=== PATIENT | female | born 1950 | race Caucasian/White ===

== ENCOUNTER 2020-05-26 14:32 | Emergency (ER) | payer MEDICARE, SELFPAY ==
[2020-05-26] VITALS (10 sets, daily range): BP systolic 132–199; BP diastolic 63–102; PULSE 66–107; RESP 12–28; TEMP 36.1–36.6; O2SAT 91–100
--- NOTE | ~2020-05-26 | XR_ITS ---
EXAMINATION: XR ankle RT 2V DATE: 05/26/2020 15:04 INDICATION: Right ankle dislocation post fall TECHNIQUE: Anteroposterior and lateral views of the right ankle were obtained. COMPARISON: None. FINDINGS: Oblique fracture of the distal fibula which exits the medial cortex approximately 12 mm above level o f the tibiotalar joint line. Transverse fracture across the base of the medial malleolus. There is al so a fracture involving a portion of the posterior malleolus. There is dislocation of the talar dome relative to the tibial plafond and. The talar dome along the medial, lateral and posterior malleolar fragments are all laterally displaced and angulated is a relatively clearly see definite relative to the more proximal tibia and fibula. Normal alignment with no evident fracture within the visualized r ight forefoot. IMPRESSION: Lateral displacement and angulation of a right ankle Hyatt type C trimalleolar fracture dislocation. Reviewed, dictated and finalized at location A. ARCH TEST ENGINE OPERATOR
--- NOTE | ~2020-05-26 | XR_ITS ---
EXAMINATION: XR thoracic spine 2V DATE: 05/26/2020 17:16 INDICATION: Thoracic back pain after fall TECHNIQUE: AP, lateral and lateral swimmer's views of the thoracic spine were obtained. COMPARISON: 07/28/2017 FINDINGS: There is no fracture, dislocation, or subluxation. The thoracic vertebral body heights and alignment are maintained. There is chronic moderate loss of intervertebral disc space height in the m id and upper thoracic spine. Small degenerative osteophytes project from the anterior endplates of mu ltiple vertebral bodies. Moderate cervical spondylosis is also noted. IMPRESSION: 1. Moderate thoracic spondylosis without acute findings or significant interval change. Reviewed, dictated and finalized at location A. GATHERER
--- NOTE | ~2020-05-26 | XR_ITS ---
EXAMINATION: XR ankle RT 2V DATE: 05/26/2020 15:41 INDICATION: Right ankle fracture status post reduction. TECHNIQUE: 2 views of right ankle were obtained. COMPARISON: Right ankle radiographs at 3:05 PM FINDINGS: There is a comminuted fracture of medial malleolus. The main distal fracture fragment demon strates 5 mm lateral displacement. There is a coronal fracture of posterior malleolus. The posterior fracture fragment demonstrates 3 mm posterior displacement. There is an oblique fracture of distal fi bula with medial aspect of the fracture line 8 mm proximal to the level of the tibial plafond. The di stal fracture fragment demonstrates 6 mm posterior displacement and 2 mm lateral displacement. The ta lar dome is normal. There is an enthesophyte at posterior aspect of calcaneal tuberosity. Ankle soft tissue swelling is noted. IMPRESSION: 1. Trimalleolar ankle fracture with improvement in alignment. Reviewed, dictated and finalized at location B. NO CASHIER MANAGER
--- NOTE | ~2020-05-26 | XR_ITS ---
EXAMINATION: XR lumbar spine 2-3V DATE: 05/26/2020 17:16 INDICATION: Low back pain TECHNIQUE: Anteroposterior and lateral views of the lumbar spine, and cone-down lateral view of the l umbosacral junction were obtained. COMPARISON: 11/30/2018 FINDINGS: There are 4 mm of unchanged anterolisthesis of L4 on L5. Bone alignment is otherwise normal . The vertebral body heights are maintained. There is severe loss of intervertebral disc space height at L1-2 and L2-3 there is mild lumbar levocurvature. No fracture is identified. Small degenerative o steophytes project from the anterior endplates of multiple vertebral bodies. IMPRESSION: 1. Moderate lumbar spondylosis without acute findings or significant interval change. Reviewed, dictated and finalized at location A. DIP PLATER IMPRESSION: 1. Moderate lumbar spondylosis without acute findings or significant interval everette ceballos
--- NOTE | 2020-05-26 14:43 | ED.GENADULT ---
HPI - General Adult General Chief complaint: Extremity Injury, Lower Stated complaint: fall - ankle deformity Time Seen by Provider: 05/26/20 14:33 Source: patient and EMS History of Present Illness HPI narrative: Patient is a 70 y/o female complaining of right ankle pain after she missed a step and fell prior to arrival. She states that her pain is severe and movement worsens her pain. She denies hitting her head or losing consciousness. She has some chronic back pain which was present prior to her fall today. She has no other injury. Related Data Home Medications Medication Instructions Recorded Confirmed duloxetine mg PO 05/26/20 05/26/20 gabapentin 05/26/20 risedronate mg PO 05/26/20 rosuvastatin mg 05/26/20 Allergies Allergy/AdvReac Type Severity Reaction Status Date / Time No Known Allergies Allergy Verified 05/26/20 14:41 Review of Systems Constitutional: Constitutional: Denies chills, Denies fever(s), Denies headache(s) and Denies weakness Eyes: Eyes: Denies blurry vision ENT: Denies headache(s) and Denies neck pain Cardiovascular: Cardiovascular: Denies chest pain and Denies dyspnea Respiratory: Respiratory: Denies cough and Denies dyspnea Gastrointestinal: Gastrointestinal: Denies abdominal pain, Denies diarrhea, Denies nausea and Denies vomiting Genitourinary: Genitourinary: Denies hematuria and Denies dysuria Musculoskeletal: Musculoskeletal: Reports back pain, Reports arthralgias (right ankle pain) and Denies neck pain Neurologic: Denies headache(s) and Denies weakness Exam Const: General: no acute distress and well developed Orientation/consciousness: oriented to person, oriented to place, oriented to time and patient oriented x3 HENMT: Head: normocephalic Ears: external ears normal General nose exam: Normal external nose present Eyes: General: appearance normal, both eyes and all related structures Conjunctivae: conjunctivae normal Neck: Neck: normal visual inspection and full ROM Chest: Chest palpation & inspection: normal inspection of the chest and no tenderness Resp: Effort & Inspection: normal respiratory effort Auscultation: clear to auscultation bilaterally Cardio: Rate: regular rate Rhythm: regular rhythm Peripheral pulses: dorsalis pedis present on the right GI: GI Palp: No abdominal tenderness and Yes Soft to palpation Skin: General skin exam: normal color and turgor normal Trauma: abrasion (abrasion over right medial malleolus with skin tenting) Neuro: General: oriented to person, oriented to place, oriented to time and patient oriented x3 Cognition (Neuro): normal cognition Extrem: General: normal to inspection, full ROM and no pedal edema Right lower extremity: ankle Details: abnormal to inspection Details: other (deformity) and tenderness Psych: Appearance: grossly normal Mental Status: mental status grossly normal Affect: normal affect Course Consultations Consultation #1: Discussed with Dr. Blanchard, who recommends discharge and have patient call for follow up appointment. Date: 05/26/20 Time: 16:08 Vital Signs Vital signs: Vital Signs Temperature 36.1 C L 05/26/20 14:33 Pulse Rate 107 H 05/26/20 14:33 Respiratory Rate 22 H 05/26/20 14:33 Blood Pressure 199/102 H 05/26/20 14:33 Pulse Oximetry 100 05/26/20 14:33 Temperature 36.6 C 05/26/20 15:09 Pulse Rate 69 05/26/20 15:52 Respiratory Rate 14 05/26/20 15:52 Blood Pressure 150/72 H 05/26/20 15:52 Pulse Oximetry 96 05/26/20 15:52 Procedures Orthopedic Fracture Reduction Fracture #1: Fracture Reduction date: 05/26/20 Fracture Reduction time: 15:20 Time Out Performed: Yes Side: right Fracture Reduction Location: tibia, fibula and other (trimalleoar) Analgesia: procedural sedation Pre-Procedure Neuro Vascular Exam: normal Technique: traction/counter-traction Post Reduction X-rays Demonstrate: acceptable reducti
[2020-05-26] MEDS: ONDANSETRON INJ 4 MG/2 ML VIAL (14:51)
[2020-05-26] MEDS: fentaNYL CITRATE INJ (*CRX) 100 MCG/2 ML VIAL 50 MCG IV PUSH (14:56)
[2020-05-26] MEDS: SODIUM CHLORIDE 0.9% IV 1,000 ML 999 ML IV CONT (14:56)
[2020-05-26] MEDS: PROPOFOL IV EMULSION 200 MG/20 ML VIAL (15:11)
[2020-05-26] MEDS: TETANUS,DIPHTHERIA,AC PERTUSSIS ADULT (0.5 ML) BOOSTRIX IM (17:27)
[2020-05-26] MEDS: HYDROcodone/acetaminophen (*CRX) 5-325 MG TABLET 1 TAB PO (17:47)
== END 2020-05-26 18:26 | disposition home or self-care (01) ==
PROVIDERS: Emergency Provider Emergency Medicine; PCP Internal Medicine
DX: S82.851A Displaced trimalleolar fracture of right lower leg, initial encounter for closed fracture (principal); W10.9XXA Fall (on) (from) unspecified stairs and steps, initial encounter; Z23 Encounter for immunization
CPT/HCPCS: 27818; 72070; 72100; 73600; 90471; 90715; 99285; A9270; J2405; J2704; J3010; J7030

== ENCOUNTER 2020-05-30 00:34 | Outpatient (CLI) | payer MEDICARE, SELFPAY ==
[2020-05-30 17:38] LABS: SARS-CoV-2 RNA PCR Negative
== END 2020-05-30 00:35 | disposition home or self-care (01) ==
LOC: ANHCOVIDDT 00:34
PROVIDERS: Family Provider Internal Medicine; PCP Internal Medicine; Visit Provider Orthopaedic Surgery
DX: Z01.812 Encounter for preprocedural laboratory examination (principal); Z20.822 Contact with and (suspected) exposure to COVID-19
CPT/HCPCS: C9803; U0003; U0005

== ENCOUNTER 2020-05-30 08:46 | Outpatient (CLI) | payer MEDICARE, SELFPAY ==
--- NOTE | 2020-05-30 08:48 | ECG_ITS ---
Measurements Intervals [place] Rate: 76 P: 41 [place]: 136 QRS: 33 QRSD: 84 T: 32 QT: 355 QTc: 400 Interpretive Statements SINUS RHYTHM INCOMPLETE RIGHT BUNDLE BRANCH BLOCK BORDERLINE ST-T WAVE ABNORMALITY- ANTERIOR LEADS BASELINE ARTIFACT- I, III, AVL BORDERLINE ECG Electronically Signed On 05-30-2020 9:19:30 ENVIRONMENTAL FIELD SERVICES TECHNICIAN by Aman Boyd D.O.
== END 2020-05-30 08:47 | disposition home or self-care (01) ==
PROVIDERS: Family Provider Internal Medicine; PCP Internal Medicine; Visit Provider Orthopaedic Surgery
DX: E78.00 Pure hypercholesterolemia, unspecified (principal); Z01.818 Encounter for other preprocedural examination; I45.10 Unspecified right bundle-branch block
CPT/HCPCS: 93005

== ENCOUNTER 2020-06-02 01:37 | Day surgery (SDC) | payer MEDICARE, SELFPAY ==
[2020-05-27 14:04] VITALS: BMI 22.9
--- NOTE | 2020-05-30 16:12 | WPDANESEPPF ---
Anes - Initial Pre Proc Eval Procedure: Operation Date: 06/02/20 10:00 Proposed Procedures p Open Reduction Internal Fixation Right Ankle Fracture - Ken Blanchard MD Date/Time: 05/30/20 16:12 Surgeon: Ken Blanchard MD Pre Op Diagnosis: Right Trimalleolar Fracture Patient Data Age: 70 Gender: F Height: 1.68 m Weight: 64.54 kg Allergies Allergy/AdvReac Type Severity Reaction Status Date / Time No Known Allergies Allergy Verified 05/26/20 14:41 Home Medications Medication Instructions Recorded Confirmed Type duloxetine 60 mg PO QAM 05/26/20 06/02/20 History gabapentin 100 mg HS 05/26/20 06/02/20 History hydrocodone-acetaminophen [[place]] 1 tablet PO Q6H PRN #20 tablet 05/26/20 06/02/20 Rx risedronate 150 mg PO MONTHLY 05/26/20 06/02/20 History rosuvastatin 5 mg HS 05/26/20 06/02/20 History ECG: Date of Service: 05/30/20 Procedure(s): CA 12 lead EKG Accession Number(s): [id number] cc: ~ Measurements Intervals [place] Rate: 76 P: 41 AR: 136 QRS: 33 QRSD: 84 T: 32 QT: 355 QTc: 400 Interpretive Statements SINUS RHYTHM INCOMPLETE RIGHT BUNDLE BRANCH BLOCK BORDERLINE ST-T WAVE ABNORMALITY- ANTERIOR LEADS BASELINE ARTIFACT- I, III, AVL BORDERLINE ECG Electronically Signed On 05-30-2020 9:19:30 GRIZZLY WORKER by Aman Boyd D.O. Dictated By: Aman Boyd DO 05/30/20 0928 Patient hx anesthesia problems: none Family hx anesthesia problems: none [facility] Past Medical History Medical History (Updated 05/30/20 @ 16:13 by James Rouse MD) Depression Hypercholesterolemia Osteoarthritis Trimalleolar fracture of right ankle Social History Social History Smoking status: Never smoker Additional smoking assessment comments: STATES SMOKED IN COLLEGE Alcohol intake: current Drinks per week: 1 Substance use: never Substance use type: does not use Living arrangements: with family Gender identity (if verbalized by the patient): Female Spiritual care concerns: No Anes - Eval Final PreProcedure Day of Procedure 05/30/20 16:12 Patient weight: normal Heart: regular rate and rhythm Lungs: clear to auscultation and normal air movement Airway: Mallampati scale class II Neurological: alert and oriented Last oral intake: >/= 8 hours ASA classification: II Emergent: no Anesthetic plan: proceed Anesthesia type and monitoring: general LMA and ETT Informed Consent: The patient's anesthetic plan and its attendant risks and benefits were discussed with the patient/family/POA. Questions were solicited and answers provided to the satisfaction of the patient/family/POA.
[2020-06-02] VITALS (8 sets, daily range): BP systolic 116–150; BP diastolic 57–80; PULSE 67–74; RESP 12–20; TEMP 36.6–37.2; O2SAT 96–100
--- NOTE | ~2020-06-02 | XR_ITS ---
EXAMINATION: XR surgery orthopedic DATE: 06/02/2020 11:19 INDICATION: ORIF right ankle fracture TECHNIQUE: 3 fluoroscopic spot images of the right ankle were obtained during procedure performed by Dr. Blanchard. Radiologist was not present for the imaging or procedure. The amount of fluoroscopy time us ed during this procedure was 0.4 minutes. COMPARISON: 05/26/2020 FINDINGS: Again seen is a trimalleolar fracture of the right ankle. Interval internal fixation of the medial ma lleolar fracture with a pair of cannulated lag screws and of the lateral malleolar fracture with an i nterfragmentary screw and lateral plate and screws. The posterior malleolar fracture remains unfixed. Alignment post fixation appears near-anatomic with a congruent ankle mortise. There overlying skin s taples. Expected postoperative gas in the anterior recess of the tibiotalar joint space. Joint spaces appear relatively preserved. IMPRESSION: 1. Near-anatomic alignment post internal fixation of a trimalleolar fracture of the right ankle. See procedure note for further detail. Reviewed, dictated and finalized at location B. R WORKER
--- NOTE | 2020-06-02 08:21 | WPDHPUPDATE1 ---
History and Physical Update Update Date/Time: 06/02/20 08:21 History and Physical has been reviewed, including an updated exam of the patient. There are NO changes in the patient's condition. Risks, benefits, and alternatives have been discussed and questions answered. Patient agrees to proceed with procedure.
[2020-06-02] MEDS: LACTATED RINGERS 1,000 ML 30 ML IV CONT ×2 (08:55→11:22)
[2020-06-02] MEDS: KETOROLAC 15 MG/ML VIAL (*BKC) IV PUSH (08:59)
--- NOTE | 2020-06-02 09:28 | WPDANESPNB ---
Anes - Peripheral Nerve Block Date/Time: 06/02/20 09:28 I have discussed with the patient/family/POA the placement of a peripheral nerve block for post-operative pain management, including associated risks, benefits, complications, and side effects. Alternative methods of post-operative analgesia were detailed. Questions were solicited and answers provided to the satisfaction of the patient/family/POA. Time-Out: A pre-procedural Time-Out was completed immediately before starting the procedure and confirmed: Patient Identification, Site, Procedure, Patient Position and the Availability of Requisite Equipment. Clinical Indications: Acute post-operative pain management requested by the operative surgeon. Nerve Block Insertion Note Anes-nerve block: posterior fossa sciatic (20cc) right and adductor canal (10cc) right Patient position: supine Skin prep: chlorhexidine Needle: 22 gauge, stimulating, insulated echogenic needle. Needle length: 80 mm Technique: ultrasound (in plane) Injectate: bupivacaine 0.5% with epi 5 mcg/ml (20cc) Observations: tolerated well Complications: none Procedure start time:: 0 Procedure end time::
[2020-06-02] MEDS: ceFAZolin 2 GM/D5W 50 ML 2 GM/50 ML BAG IVPB (09:29)
[2020-06-02] MEDS: ceFAZolin SODIUM 1 GM VIAL IV PUSH (11:01)
--- NOTE | 2020-06-02 11:40 | PM.PROC ---
Procedure Note - Detailed Date of procedure: 06/02/20 Pre-op diagnosis: Right Trimalleolar Fracture Post-op diagnosis: same Procedure performed: ORIF right trimalleolar ankle fracture Description of procedure: The patient was identified and proper site identified. In the preoperative holding area, anesthesia team performed a right lower extremity block. She was then taken back to the operating room and transferred to the or table placing her supine taking care to properly pad and position her torso and extremities. After general anesthetic induction and intubation, a nonsterile tourniquet was placed high on the right thigh. The splint was removed from the right lower extremity. The patient had pretty significant fracture blisters medially and laterally however there was no erythema surrounding these and they were not directly in the line with the proposed incisions. Prior to prepping, the fracture blisters were unroofed showing healthy skin underneath. The right lower extremity was prepped and draped in the usual sterile fashion. Extremity was exsanguinated and the tourniquet was inflated to 300 mmHg remaining up for approximately 71 minutes. A longitudinal incision was made over the distal fibula. Subcutaneous tissue was sharply dissected down to the fracture site which was cleared of debris and then able to be reduced anatomically. It was secured initially with a 3.5mm inter fragmentary screw. A four hole locking distal fibular plate was then contoured and applied to the distal fibula under fluoroscopic visualization. This gave an anatomic reduction with excellent stabilization of the distal fibular and posterior malleolar fragments. Lateral wound was irrigated with sterile saline. Skin edges reapproximated with two 0 strata fix and sheyla. The medial malleolar fragment was unable to be reduced so a longitudinal incision was made over the medial fracture. Subcutaneous tissue was bluntly dissected. Saphenous vein and nerve branches were identified and then protected by retraction. There was soft tissue interposition in the medial fracture site the medial malleolar fracture was cleared of debris and then was able to be anatomically reduced. It was secured with 23.5 mm cannulated screws using a washer around one of them. This gave anatomic reduction of the medial fragment. Overall reduction and hardware placement was assessed fluoroscopically on the AP, mortise and lateral views. Talus was positioned anatomically in the mortise and the fractures were reduced nicely. The medial wound was irrigated with sterile saline. It was closed with three 0 V lock and sheyla. 0 form sheeting was applied to the incision sites as well as where the fracture blisters were and then sterile dressing applied. A well-padded stirrup type ankle splint was fashion. Tourniquet was released. The patient tolerated the procedure well. She was awakened, extubated, transferred to a cart and taken back to recovery area in stable condition. There were no known intraoperative complications. Estimated blood loss was negligible. She received perioperative antibiotics. Anesthesia: GLMA and regional Surgeon: Ken Blanchard MD Estimated blood loss (mL): 10 Tourniquet time (min): 71 Drains: No Packing: No Pathology: none sent Complications: No immediate complications Condition: stable Disposition: PACU
== END 2020-06-02 14:36 | disposition home or self-care (01) ==
PROVIDERS: Family Provider Internal Medicine; PCP Internal Medicine; Visit Provider Orthopaedic Surgery
PROC: (CPT 27822; principal; 2020-06-02 10:00)
DX: S82.851A Displaced trimalleolar fracture of right lower leg, initial encounter for closed fracture (principal); G89.18 Other acute postprocedural pain; E78.00 Pure hypercholesterolemia, unspecified; M19.90 Unspecified osteoarthritis, unspecified site; F32.9 Major depressive disorder, single episode, unspecified; W19.XXXA Unspecified fall, initial encounter
CPT/HCPCS: 27822; 64445; 64415; 93005; C1713; C1769; C9803; J0690; J1100; J1885; J2250; J2405; J2704; J3010; J7120; U0003; U0005

== ENCOUNTER → 2020-08-18 11:29 | Outpatient (CLI) | payer MEDICARE, SELFPAY ==
--- NOTE | ~2020-08-18 | MM_ITS ---
EXAMINATION: MM screening shauna BI w [facility] HISTORY: Screening TECHNIQUE: Craniocaudal and mediolateral oblique 3-D tomosynthesis images were obtained and synthetic 2-D images were generated. CAD analysis was submitted and interpreted. COMPARISON: Comparison to multiple prior studies sequentially, with oldest reviewed study dated 01/18. BREAST PARENCHYMAL COMPOSITION: There are scattered areas of fibroglandular density. FINDINGS: There is no evidence of suspicious mass, calcification, or architectural distortion to sugg est malignancy in either breast. There has been no suspicious interval change. IMPRESSION: 1. No mammographic evidence of malignancy. 2. Recommend routine screening mammography in one year. BI-RADS Category 1: Negative Reviewed, dictated and finalized at location A.
== END ==
PROVIDERS: Visit Provider Obstetrics & Gynecology
DX: Z12.31 Encounter for screening mammogram for malignant neoplasm of breast (principal)
CPT/HCPCS: 77063; 77067

== ENCOUNTER → 2020-11-28 14:47 | Outpatient (CLI) | payer MEDICARE, SELFPAY ==
--- NOTE | ~2020-11-28 | CT_ITS ---
EXAMINATION: CT abdomen pelvis w con INDICATION: Left lower quadrant pain TECHNIQUE: Computed tomographic images of the abdomen and pelvis were obtained after the administrati on of 100 cc of Omnipaque 350 intravenous contrast. The dose-length product (DLP) was 562.47 mGy-cm. Automated exposure control and iterative reconstruction technique were employed. COMPARISON: 10/09/2013 FINDINGS: Minimal dependent atelectasis is present in the lung bases. The heart size is normal. The l iver, spleen, pancreas, gallbladder, and adrenal glands are normal. The kidneys are unremarkable. No pathologically enlarged abdominal or pelvic lymph nodes are identified. There is no free intraperiton eal gas or evidence of bowel obstruction. There is hyperattenuating material within the otherwise nor mal appendix. Colonic diverticulosis is present. There is appears to be fat stranding in the deep pos terior aspect of the left pelvis adjacent to the sigmoid colon. Severe upper lumbar spondylosis is no ryanne. IMPRESSION: 1. Possible mild diverticulitis of the left pelvis. Reviewed, dictated and finalized at location B.
[2020-11-28 15:23] LABS: Estimated Glomerular Filt Rate 55
== END ==
PROVIDERS: PCP Internal Medicine; Visit Provider Internal Medicine
DX: R10.32 Left lower quadrant pain (principal)
CPT/HCPCS: 74177; Q9967

== ENCOUNTER 2020-12-31 10:59 | Outpatient (CLI) | payer MEDICARE, SELFPAY ==
--- NOTE | ~2020-12-31 | XR_ITS ---
EXAMINATION: XR hip LT min 2V DATE: 12/31/2020 11:27 INDICATION: Pelvic pain. TECHNIQUE: 3 views of left hip were obtained. COMPARISON: Left hip radiographs 11/30/2018 FINDINGS: Bone alignment is normal. No fracture. There is moderate left hip osteoarthritis. There is moderate lumbar spondylosis. IMPRESSION: 1. Worsened moderate left hip osteoarthritis. Reviewed, dictated and finalized at location A.
== END 2020-12-31 11:00 | disposition home or self-care (01) ==
PROVIDERS: PCP Internal Medicine; Visit Provider Internal Medicine
DX: R10.2 Pelvic and perineal pain (principal); M16.12 Unilateral primary osteoarthritis, left hip
CPT/HCPCS: 73502

== ENCOUNTER → 2021-08-20 10:00 | Outpatient (CLI) | payer MEDICARE, SELFPAY ==
--- NOTE | ~2021-08-20 | MM_ITS ---
EXAMINATION: MM screening shauna BI w [facility] HISTORY: Screening TECHNIQUE: Craniocaudal and mediolateral oblique 3-D tomosynthesis images were obtained and synthetic 2-D images were generated. CAD analysis was submitted and interpreted. COMPARISON: Comparison to multiple prior studies sequentially, with oldest reviewed study dated 01/20. BREAST PARENCHYMAL COMPOSITION: There are scattered areas of fibroglandular density. FINDINGS: There is no evidence of suspicious mass, calcification, or architectural distortion to sugg est malignancy in either breast. There has been no suspicious interval change. IMPRESSION: 1. No mammographic evidence of malignancy. 2. Recommend routine screening mammography in one year. BI-RADS Category 1: Negative Reviewed, dictated and finalized at location A.
== END ==
PROVIDERS: PCP Internal Medicine; Visit Provider Obstetrics & Gynecology
DX: Z12.31 Encounter for screening mammogram for malignant neoplasm of breast (principal)
CPT/HCPCS: 77063; 77067

== ENCOUNTER 2022-06-16 11:00 | Day surgery (SDC) | payer MEDICARE, SELFPAY ==
[2022-04-27 11:30] VITALS: BMI 20.5
[2022-06-02 09:32] VITALS: BMI 21.3
--- NOTE | 2022-06-15 16:51 | PM.HPGS ---
History of Present Illness History of Present Illness Consent: Risks, benefits, and alternatives have been discussed and questions answered. Patient agrees to proceed with procedure. Chief complaint: Abnormal CT Narrative: Florence Keith is a 72 year old female about 1 year ago, beginning on she developed left lower quadrant pain.? She had gone to a hospital and was given antibiotics for diverticulitis.? She is fairly certain that she had a CT scan at that time.? She had a CT scan at this institution in November of last year.? Her last colonoscopy was about 8 years ago Review of Systems Review of Systems: All systems reviewed & are unremarkable except as noted in HPI and below PMFSH Past Medical History Medical History Depression Hypercholesterolemia Osteoarthritis Surgical History Surgical History Trimalleolar fracture of right ankle ORIF May 2020 Social History Social History Smoking status: Never smoker Additional smoking assessment comments: STATES SMOKED IN COLLEGE Alcohol intake: current Drinks per week: 0 Alcohol use details: 1 GLASS OF WINE PER MONTH Substance use: never Substance use type: does not use Living arrangements: with family Gender identity (if verbalized by the patient): Female Spiritual care concerns: No Meds Home Medications and Allergies Home Medications Medication Instructions Recorded Confirmed Type duloxetine 60 mg capsule,delayed 60 mg PO QAM 05/26/20 06/16/22 History release risedronate 150 mg tablet 150 mg PO MONTHLY 05/26/20 06/16/22 History rosuvastatin 5 mg tablet 5 mg HS 05/26/20 06/16/22 History lubiprostone 24 mcg capsule 24 mcg PO BID 04/20/22 06/16/22 History topiramate 50 mg capsule 50 mg PO DAILY 04/20/22 06/16/22 History sprinkle,extended release 24 hr oxycodone-acetaminophen 5 mg-325 1 tablet PO DAILY 06/02/22 06/16/22 History mg tablet Allergies Allergy/AdvReac Type Severity Reaction Status Date / Time No Known Allergies Allergy Verified 06/16/22 11:39 Exam Const: General: alert Orientation/consciousness: patient oriented x3 Resp: Auscultation: clear to auscultation bilaterally Cardio: Rhythm: regular rhythm GI: GI Palp: Yes Soft to palpation and No Tenderness to palpation present (GI) Neuro: General: patient oriented x3 Assessment and Plan Assessment and plan (1) Abnormal CT scan, gastrointestinal tract: Code(s): R93.3 - Abnormal findings on diagnostic imaging of other parts of digestive tract Status: Acute Assessment and Plan: Colonoscopy with possible biopsy or polypectomy or cautery or injection of substances.
[2022-06-16 11:35] VITALS: BP 127/74; PULSE 85; RESP 16; TEMP 37.2; O2SAT 100
[2022-06-16] MEDS: LACTATED RINGERS 1,000 ML 150 ML IV CONT (11:35)
--- NOTE | 2022-06-16 12:28 | WPDANESEPPF ---
Anes - Initial Pre Proc Eval Procedure: Operation Date: 06/16/22 12:30 Proposed Procedures p Diagnostic Colonoscopy - Thang Atkins MD Date/Time: 06/16/22 12:28 Surgeon: Thang Atkins MD Pre Op Diagnosis: Abnormal CT Patient Data Age: 72 Gender: F Height: 1.68 m Weight: 59.1 kg Allergies Allergy/AdvReac Type Severity Reaction Status Date / Time No Known Allergies Allergy Verified 06/16/22 11:39 Home Medications Medication Instructions Recorded Confirmed Type duloxetine 60 mg capsule,delayed 60 mg PO QAM 05/26/20 06/16/22 History release risedronate 150 mg tablet 150 mg PO MONTHLY 05/26/20 06/16/22 History rosuvastatin 5 mg tablet 5 mg HS 05/26/20 06/16/22 History lubiprostone 24 mcg capsule 24 mcg PO BID 04/20/22 06/16/22 History topiramate 50 mg capsule 50 mg PO DAILY 04/20/22 06/16/22 History sprinkle,extended release 24 hr oxycodone-acetaminophen 5 mg-325 1 tablet PO DAILY 06/02/22 06/16/22 History mg tablet Patient hx anesthesia problems: none Family hx anesthesia problems: none Results Review: All pre-operative results and documents have been reviewed as part of the pre-operative evaluation. [facility] Past Medical History Medical History Depression Hypercholesterolemia Osteoarthritis Surgical History Surgical History Trimalleolar fracture of right ankle ORIF May 2020 Social History Social History Smoking status: Never smoker Additional smoking assessment comments: STATES SMOKED IN COLLEGE Alcohol intake: current Drinks per week: 0 Alcohol use details: 1 GLASS OF WINE PER MONTH Substance use: never Substance use type: does not use Living arrangements: with family Gender identity (if verbalized by the patient): Female Spiritual care concerns: No Anes - Eval Final PreProcedure Day of Procedure 06/16/22 12:28 Patient weight: normal Heart: regular rate and rhythm Lungs: decreased breath sounds Airway: Mallampati scale class II Neurological: alert and oriented Last oral intake: >/= 8 hours ASA classification: III Emergent: no Anesthetic plan: proceed Anesthesia type and monitoring: general GIVS and standard monitoring Results Review: All pre-operative results and documents have been reviewed as part of the pre-operative evaluation. Informed Consent: The patient's anesthetic plan and its attendant risks and benefits were discussed with the patient/family/POA. Questions were solicited and answers provided to the satisfaction of the patient/family/POA.
[2022-06-16 12:56] VITALS: BP 105/68; PULSE 81; RESP 15; O2SAT 97
[2022-06-16 13:06] VITALS: BP 117/75; PULSE 71; RESP 15; O2SAT 98
[2022-06-16 13:16] VITALS: BP 127/61; PULSE 66; RESP 15; O2SAT 97
--- NOTE | 2022-06-16 13:33 | WPDANESPN ---
Anes - Prog Note Post-Op Date/Time: 06/16/22 13:33 Cardiovascular status: normal Respiratory status: normal Airway patency: baseline Mental status: baseline Post-Op hydration status: normal Vital Signs: Last Vital Signs Temp 37.2 C 06/16/22 11:35 Pulse 71 06/16/22 13:06 Resp 15 06/16/22 13:06 BP 117/75 06/16/22 13:06 Pulse Ox 98 06/16/22 13:06 O2 Del Method Room Air 06/16/22 13:06 Pain Score (VAS): 0 Patient Feedback: Patient satisfied with anesthetic care.
== END 2022-06-16 13:40 | disposition home or self-care (01) ==
PROVIDERS: Visit Provider Internal Medicine Gastroenterology
PROC: 0DJD8ZZ Inspection of Lower Intestinal Tract, Via Natural or Artificial Opening Endoscopic (ICD-10-PCS; CPT 45378; principal; 2022-06-16 12:30)
DX: R93.3 Abnormal findings on diagnostic imaging of other parts of digestive tract (principal)
CPT/HCPCS: 45378

== ENCOUNTER 2022-07-11 12:33 | Outpatient (CLI) | payer MEDICARE, SELFPAY ==
--- NOTE | ~2022-07-11 | MR_ITS ---
EXAMINATION: MR lumbar spine wo con DATE: 07/11/2022 13:11 INDICATION: Central stenosis of spinal canal. TECHNIQUE: Magnetic resonance imaging (MRI) of the lumbar spine was performed without intravenous con trast. Sequences included sagittal T2-weighted FSE, sagittal T2-weighted FS FSE, sagittal T1-weighted FSE, and axial T2-weighted FSE. COMPARISON: Lumbar spine MRI 08/22/2018 FINDINGS: There is 13 degrees dextroscoliosis of lumbar spine. There is 4 mm retrolisthesis of L1 on L2, 3 mm retrolisthesis of L2 on L3, 4 mm anterolisthesis of L4 on L5, and 3 mm anterolisthesis of L5 on S1. Vertebral body heights are normal. There is moderately decreased disc height at T12-L1, sever donya decreased disc height at 1-L2 and L2-L3, mildly decreased disc height at L3-L4, moderately decrea sed disc height at L4-L5, and mildly decreased disc height at L5-S1. The distal spinal cord signal in tensity is normal. The conus medullaris is at L1. The following disc levels are specifically discusse d: L1-L2: The disc is bulging with superimposed large left subarticular zone extrusion with mass effect on left L2 nerve root in left lateral recess. There is mild bilateral facet joint osteoarthritis. The re is mild right and moderate left neural foraminal stenosis. There is mild central canal stenosis. T here is severe stenosis of left lateral recess. L2-L3: The disc is bulging and has an annular fissure. There is moderate right and severe left facet joint osteoarthritis. There is mild right and moderate left neural foraminal stenosis. There is mild central canal stenosis. L3-L4: The disc is bulging and has an annular fissure. There is mild right and severe left facet join t osteoarthritis. There is mild bilateral neural foraminal stenosis. There is mild central canal sten osis. L4-L5: The disc is bulging and has an annular fissure. There is severe bilateral facet joint osteoart hritis. There is moderate right and mild left neural foraminal stenosis. There is mild central canal stenosis. L5-S1: This is bulging and has an annular fissure. There is severe bilateral facet joint osteoarthrit is. There is mild bilateral neural foraminal stenosis. There is no central canal stenosis. IMPRESSION: 1. Severe lumbar spondylosis, worsened from 08/22/2018. 2. Lumbar dextroscoliosis. Reviewed, dictated and finalized at location A. [employer]
== END 2022-07-11 12:34 | disposition home or self-care (01) ==
PROVIDERS: PCP Internal Medicine
DX: M48.00 Spinal stenosis, site unspecified (principal); M47.896 Other spondylosis, lumbar region
CPT/HCPCS: 72148

== ENCOUNTER 2023-08-29 08:47 | Outpatient (CLI) | payer MEDICARE, SELFPAY ==
--- NOTE | ~2023-08-29 | DEXA_ITS ---
Bone Density Report Name: RONALD JANE Age: 73 Sex: Female Ethnicity: White Date of : 1950 Indication: postmenopausal; screening for osteoporosis; height loss; prior fracture; Referring Provider: ABNER, FUNMILAYO [facility] Study: Bone densitometry was performed. Exam Date: August 29, 2023 Accession number: [id number] Bone Density: Region BMD T-score Z-score Classification AP Spine (L1, L2) 1.157 1.6 3.9 Normal World Health Organization criteria for BMD impression classify patients as: Normal (T-score at or above -1.0), Osteopenia (T-score between -1.0 and -2.5), or Osteoporosis (T-score at or below -2.5). Clinical Information Provided by Patient: Has had a low trauma fracture Is being treated for osteoporosis Has used the following medications: Fosamax (i.e. alendronate), Vitamin D, Calcium, MTV Patient maximum height was 66 Menopause Age: 46 No regular weight bearing exercise Onset of menses at age 20 Number of children 2 Impression: The patient has normal bone mass. The patient has risk factors, including: previous fracture. Discussion: It is important to ask patients whether they are taking their medications and to encourage continued and appropriate compliance with their osteoporosis therapies to reduce fracture risk. It is also important to review their risk factors and encourage appropriate calcium and vitamin D intakes, exercise, fall prevention and other lifestyle measures. Follow-Up: Consider a repeat BMD and Vertebral Fracture Assessment (VFA) exam in 2 years or sooner if medically necessary, to reassess this patient's status. Reported by: BOBBY on 08/29/2023 9:13:00 AM. Reviewed, dictated and finalized at location AZay EWING
== END 2023-08-29 08:48 ==
PROVIDERS: PCP Internal Medicine; Visit Provider Internal Medicine
DX: Z78.0 Asymptomatic menopausal state (principal); M85.9 Disorder of bone density and structure, unspecified
CPT/HCPCS: 77080

== ENCOUNTER 2023-09-30 15:00 | Outpatient (CLI) | payer MEDICARE, SELFPAY ==
--- NOTE | ~2023-09-30 | MM_ITS ---
EXAMINATION: MM screening shauna BI w [facility] HISTORY: Screening mammogram TECHNIQUE: Craniocaudal and mediolateral oblique 3-D tomosynthesis images were obtained and synthetic 2-D images were generated. CAD analysis was submitted and interpreted. COMPARISON: 08/20/2021, 08/18/2020 bilateral screening mammogram examinations BREAST PARENCHYMAL COMPOSITION: There are scattered areas of fibroglandular density. FINDINGS: There is stable post-biopsy change in the upper outer quadrant of the right breast. There is no evidence of suspicious mass, calcification, or new architectural distortion to suggest maligna ncy in either breast. There has been no suspicious interval change. IMPRESSION: 1. No mammographic evidence of malignancy. 2. Recommend routine screening mammography in one year. BI-RADS Category 2: Benign finding(s). Reviewed, dictated and finalized at location B.
== END 2023-09-30 15:01 ==
LOC: MICIMG 15:01
PROVIDERS: PCP Internal Medicine; Visit Provider Obstetrics & Gynecology
DX: Z12.31 Encounter for screening mammogram for malignant neoplasm of breast (principal)
CPT/HCPCS: 77063; 77067

== ENCOUNTER 2023-12-02 07:35 | Outpatient (CLI) | payer MEDICARE, SELFPAY ==
--- NOTE | ~2023-12-02 | XR_ITS ---
XR cervical spine 4-5V Ordering provider: Tucker Damon ([place]), History: . Cervical radiculopathy . Comparison: None. FINDINGS: VERTEBRAL BODIES: Normal height and alignment. No visible fracture or subluxation. The dens is intact . DISK SPACES: Narrowing of the disc C5-C6 and C6-C7. Same levels uncovertebral joint osteoarthritic ch anges. PARASPINOUS SOFT TISSUES: No prevertebral soft tissue swelling. IMPRESSION: No acute osseous abnormality cervical spine. Degenerative disc disease at the level of C5-C6 and C6-C7. Reviewed, dictated and finalized at location A.
== END 2023-12-02 07:36 ==
LOC: MICIMG 07:37
PROVIDERS: PCP Internal Medicine; Visit Provider Internal Medicine
DX: M54.12 Radiculopathy, cervical region (principal); M50.322 Other cervical disc degeneration at C5-C6 level; M50.323 Other cervical disc degeneration at C6-C7 level
CPT/HCPCS: 72050

== ENCOUNTER 2024-07-20 10:17 | Outpatient (CLI) | payer MEDICARE, SELFPAY ==
--- NOTE | ~2024-07-20 | CT_ITS ---
CT of the Abdomen and Pelvis: Indication: Abdominal pain Technique: 2.5 mm axial scans were obtained through the abdomen and pelvis following intravenous adm inistration of 100 cc of Omnipaque 350. Dose reduction technique was used on this scan by utilizing a utomated exposure control and iterative reconstruction technique. The dose-length product (DLP) was 5 62.14 mGy-cm. COMPARISON: 11/28/2020 Findings: Scans through the lung bases are unremarkable. The liver, spleen, gallbladder, adrenals and kidneys are within normal limits. There is a 10 mm cysti c lesion at the uncinate process of the pancreas. No evidence of aortic aneurysm. No lymphadenopathy . No bowel obstruction or bowel wall thickening. There is extensive sigmoid diverticulosis. Images through the pelvis are degraded by streak artifact from bilateral hip arthroplasty. Urinary bl adder grossly unremarkable. No definite pelvic mass seen. No definite ascites. Impression: No acute abnormality. Stable 10 mm cystic lesion at the uncinate process of the pancreas. Extensive sigmoid diverticulosis. Reviewed, dictated and finalized at [facility]. Impression: No acute abnormality. Stable 10 mm cystic lesion at the uncinate process of the pancreas. Extensive sigmoid diverticulosis.
[2024-07-20 10:40] LABS: Estimated Glomerular Filt Rate 54
== END 2024-07-20 10:18 | disposition home or self-care (01) ==
PROVIDERS: PCP Internal Medicine; Visit Provider Internal Medicine
DX: R10.32 Left lower quadrant pain (principal); K57.32 Diverticulitis of large intestine without perforation or abscess without bleeding
CPT/HCPCS: 74177; Q9967

== ENCOUNTER 2024-12-06 12:35 | Outpatient (CLI) | payer MEDICARE, SELFPAY ==
--- NOTE | ~2024-12-06 | MM_ITS ---
EXAMINATION: MM screening shauna BI w [facility] HISTORY: Screening TECHNIQUE: Craniocaudal and mediolateral oblique 3-D tomosynthesis images were obtained and synthetic 2-D images were generated. CAD analysis was submitted and interpreted. COMPARISON: Comparison to multiple prior studies sequentially, with oldest reviewed study dated 05/2016. BREAST PARENCHYMAL COMPOSITION: Not dense: There are scattered areas of fibroglandular density. FINDINGS: There is no evidence of suspicious mass, calcification, or architectural distortion to sugg est malignancy in either breast. There has been no suspicious interval change. IMPRESSION: 1. No mammographic evidence of malignancy. 2. Recommend routine screening mammography in one year. BI-RADS Category 1: Negative Reviewed, dictated and finalized at location B.
== END 2024-12-06 12:36 | disposition home or self-care (01) ==
LOC: MICIMG 12:37
PROVIDERS: PCP Internal Medicine; Visit Provider Internal Medicine
DX: Z12.31 Encounter for screening mammogram for malignant neoplasm of breast (principal)
CPT/HCPCS: 77063; 77067